=== PATIENT | female | born 1995 | race Two or more races ===

== ENCOUNTER 2022-01-08 05:51 | Inpatient (IN) | payer OTHER ==
[~2022-01-08] VITALS: Ht 157.5 cm; Wt 59.0 kg
== END 2022-01-10 13:01 | disposition home or self-care (01) | DRG 807 ==
LOC: LDR 05:51 → OB/GYN 05:51
PROVIDERS: ADMIT Obstetrics & Gynecology; ATTEND Obstetrics & Gynecology
PROC: 10E0XZZ Delivery of Products of Conception, External Approach (ICD-10-PCS; principal; 2022-01-08)
PROC: 0UQG7ZZ Repair Vagina, Via Natural or Artificial Opening (ICD-10-PCS; 2022-01-08)
PROC: 3E033VJ Introduction of Other Hormone into Peripheral Vein, Percutaneous Approach (ICD-10-PCS; 2022-01-08)
PROC: 3E0P7VZ Introduction of Hormone into Female Reproductive, Via Natural or Artificial Opening (ICD-10-PCS; 2022-01-08)
PROC: 4A1HXCZ Monitoring of Products of Conception, Cardiac Rate, External Approach (ICD-10-PCS; 2022-01-08)
DX: O71.4 Obstetric high vaginal laceration alone (principal); Z37.0 Single live birth; Z3A.39 39 weeks gestation of pregnancy; Z20.822 Contact with and (suspected) exposure to COVID-19

== ENCOUNTER 2022-06-20 23:11 | Emergency (ER) | payer OTHER ==
[2022-06-21] MEDS ORDERED: ZYNCOF 20-400120 ML PO (03:50)
[2022-06-21] MEDS ORDERED: ALBUTEROL2.5 MG/3 M IH (03:50)
[2022-06-21] MEDS ORDERED: ZITHROMAX500 MG PO (03:50)
[2022-06-21] MEDS ORDERED: BUDESONIDE0.5 MG/2 M IH (03:50)
== END 2022-06-21 04:17 ==
LOC: ER 23:11
DX: J06.9 Acute upper respiratory infection, unspecified (principal); Z20.822 Contact with and (suspected) exposure to COVID-19